=== PATIENT | female | born 1950 | race Caucasian/White ===

== ENCOUNTER 2020-07-27 10:51 | Emergency (ER) | payer MEDICARE, BC ==
--- NOTE | 2020-07-27 11:14 | EDM.PDOC ---
ED HPI GENERAL MEDICAL PROBLEM - General Chief Complaint: Cardiovascular Problem Stated Complaint: EMS ARRIVAL Time Seen by Provider: 07/27/20 10:52 Source of Information: Reports: Patient History Limitations: Reports: No Limitations - History of Present Illness INITIAL COMMENTS - FREE TEXT/NARRATIVE: Presents via EMS reporting syncope. Patient states she was at a local orthop edic clinic getting a ruth's cyst checked out. She started feeling lightheaded, she asked to lay down which she did, brief syncope. Later on in the visit she had to go the bathroom and she passed out in the wheelchair. Then she was feeling better but had to lay down again and so the staff called EMS. However the patient states "this is nothing new for me--I pass out all the time at the doctors. I have passed out in the eye clinic, when I get my blood drawn, when I see the doctor". States she is otherwise healthy, has no chronic medical problems except controlled essential HTN and dyslipidemia and regularly sees her doctor for preventative healthcare once yearly. She states she has not altered her usual habit of drinking 2 glasses of water a day. She has been eating normally and has not been otherwise ill. - Related Data Allergies Allergy/AdvReac Type Severity Reaction Status Date / Time metal Allergy Hives Uncoded 07/27/20 10:56 Home Meds: Home Meds Gemfibrozil 600 mg PO BID 03/19/15 [History] lisinopriL [Lisinopril] 5 mg PO DAILY 07/27/20 [History] Past Medical History Other [employer] History: hysterectomy Endocrine/Metabolic History: Reports: Diabetes, Type II, Other (See Below) Other Endocrine/Metabolic History: Kidney Disease - Infectious Disease History Infectious Disease History: Reports: Chicken Pox, Measles - Past Surgical History GI Surgical History: Reports: Appendectomy, Cholecystectomy Female Surgical History: Reports: Hysterectomy Social & Family History - Family History Family Medical History: Noncontributory - Tobacco Use Tobacco Use Status *Q: Never Tobacco User - Caffeine Use Caffeine Use: Reports: Coffee - Recreational Drug Use Recreational Drug Use: No ED ROS GENERAL - Review of Systems Review Of Systems: Comprehensive ROS is negative, except as noted in HPI. ED EXAM, GENERAL - Physical Exam Exam: See Below Exam Limited By: No Limitations General Appearance: Alert, No Apparent Distress Ears: Normal External Exam Nose: Normal Inspection Throat/Mouth: Normal Inspection Head: Atraumatic, Normocephalic Neck: Normal Inspection Respiratory/Chest: No Respiratory Distress, Lungs Clear, Normal Breath Sounds Cardiovascular: Normal Peripheral Pulses, Regular Rate, Rhythm GI/Abdominal: Soft Back Exam: Normal Inspection Extremities: Normal Inspection Neurological: Alert, Oriented, Normal Cognition Psychiatric: Normal Mood, Flat Affect Skin Exam: Warm, Dry, Intact, Normal Color, No Rash Lymphatic: No Adenopathy #1 Interpretation EKG Date: 07/27/20 Rhythm: NSR [place]: Normal P-Wave: Present QRS: Normal ST-T: Normal QT: Normal Course - Vital Signs Last Recorded V/S: Last Vital Signs Temp Pulse 58 L 07/27/20 10:52 Resp 16 07/27/20 10:52 BP 140/83 07/27/20 10:52 Pulse Ox 97 07/27/20 10:52 - Orders/Labs/Meds Orders: Active Orders 24 hr Category Date Time Status EKG 12 Lead [EKG Documentation Completion] [RC] STAT Care 07/27/20 12:30 Active Labs: Laboratory Tests 07/27/20 07/27/20 Range/Units 11:40 11:40 WBC 4.84 (4.0-11.0) K/uL RBC 4.44 (4.30-5.90) M/uL Hgb 13.8 (12.0-16.0) g/dL Hct 42.1 (36.0-46.0) % MCV 94.8 (80.0-98.0) fL MCH 31.1 (27.0-32.0) pg MCHC 32.8 (31.0-37.0) g/dL RDW Std Deviation 43.6 (28.0-62.0) fl RDW Coeff of Isa 13 (11.0-15.0) % Plt Count 329 (150-400) K/uL MPV 9.70 (7.40-12.00) fL Neut % (Auto) 69.0 (48.0-80.0) % Lymph % (Auto) 21.1 (16.0-40.0) % [place] % (Auto) 8.7 (0.0-15.0) % Eos % (Auto) 0.6 (0.0-7.0) % Baso % (Auto) 0.6 (0.0-1.5) % Neut # (Auto) 3.3 (1.4-5.7) K/uL Lymph # (Auto) 1.0 (0.6-2.4) K/uL [place] # (Auto) 0.4 (0.0-0.8) K/uL Eos # (Auto) 0.0 (0.0-0.7) K/uL Baso # (Auto) 0.0 (0.0-0.1) K/uL Nucleated RBC % 0.0 /100WBC Nucleated RBCs # 0 K/uL Sodium 140 (136-145) mmol/L Potassium 3.9 (3.5-5.1) mmol/L Chloride 103 (98-107) mmol/L Carbon Dioxide 25.1 (21.0-32.0) mmol/L BUN 26 H (7.0-18.0) mg/dL Creatinine 0.8 (0.6-1.0) mg/dL Est Cr Clr Drug Dosing 45.66 mL/min Estimated GFR (MDRD) > 60.0 ml/min Glucose 155 H (74-106) mg/dL Calcium 9.8 (8.5-10.1) mg/dL Total Bilirubin 0.3 (0.2-1.0) mg/dL AST 19 (15-37) IU/L ALT 26 (14-63) IU/L Alkaline Phosphatase 72 (46-116) U/L Troponin I < 0.050 (0.000-0.056) ng/mL Total Protein 7.6 (6.4-8.2) g/dL Albumin 4.3 (3.4-5.0) g/dL Globulin 3.3 (2.6-4.0) g/dL Albumin/Globulin Ratio 1.3 (0.9-1.6) TSH 3rd Generation 1.74 (0.36-3.74) uIU/mL - Re-Assessments/Exams Free Text/Narrative Re-Assessment/Exam: 07/27/20 13:00 Now the patient tells me that she has had some borderline diabetes in the past which is diet controlled. She checked her blood sugar this morning and it was 98 and she did have some juice afterwards. I visited with her family and they concurred that this is a common experience for her when she goes to the doctor "we have been through it many times". Has an appointment with her primary care provider on August 18 Departure - Departure Time of Disposition: 13:01 Disposition: Home, Self-Care 01 Condition: Good Clinical Impression: Syncope Qualifiers: Syncope type: vasovagal syncope Qualified Code(s): R55 - Syncope and collapse Referrals: Bony Prather MD [Primary Care Provider] - Forms: ED Department Discharge Additional Instructions: The following information is given to patients seen in the emergency department who are being discharged to home. This information is to outline your options for follow-up care. We provide all patients seen in our emergency department with a follow-up referral. The need for follow-up, as well as the timing and circumstances, are variable depending upon the specifics of your emergency department visit. If you don't have a primary care physician on staff, we will provide you with a referral. We always advise you to contact your personal physician following an emergency department visit to inform them of the circumstance of the visit and for follow-up with them and/or the need for any referrals to a consulting specialist. The emergency department will also refer you to a specialist when appropriate. This referral assures that you have the opportunity for follow-up care with a specialist. All of these measure are taken in an effort to provide you with optimal care, which includes your follow-up. Under all circumstances we always encourage you to contact your private physician who remains a resource for coordinating your care. When calling for follow-up care, please make the office aware that this follow-up is from your recent emergency room visit. If for any reason you are refused follow-up, please contact the [facility] Emergency Department at and asked to speak to the emergency department charge nurse. 1. Be certain to drink plenty of fluids before any doctors appointment, procedure or blood draw. Check your blood sugar and make sure you have drank some juice or eaten a snack. 2. Follow up with Dr. Prather for your annual exam on August 18 as previously scheduled. We will have to reschedule your orthopedic appointment for your Ruth's cyst. Sepsis Event Note (ED) - Evaluation Sepsis Screening Result: No Definite Risk - Focused Exam Vital Signs: Vital Signs Pulse Resp BP Pulse Ox 07/27/20 10:52 58 L 16 140/83 97
--- NOTE | 2020-07-27 11:16 | PCM.SN.2 ---
- Free Text/Narrative Note: EKG interpretation #1: Obtained at 1105 demonstrates sinus bradycardia with a rate of 56 normal axis and intervals no acute ischemia.
[2020-07-27 12:29] LABS: BLOOD UREA NITROGEN,BUN 26 mg/dL (7.0-18.0); CARBON DIOXIDE,CO2 25.1 mmol/L (21.0-32.0); CHLORIDE,CL 103 mmol/L (98-107); GLUCOSE RANDOM 155 mg/dL (74-106); POTASSIUM,K 3.9 mmol/L (3.5-5.1); SODIUM,NA 140 mmol/L (136-145)
[2020-07-27 13:09] VITALS: BP 127/71; PULSE 67
== END 2020-07-27 13:12 | disposition home or self-care (01) ==
LOC: MW.ED 10:51
DX: R55 Syncope and collapse (principal); I10 Essential (primary) hypertension; E11.9 Type 2 diabetes mellitus without complications; Z91.09 Other allergy status, other than to drugs and biological substances; Z79.899 Other long term (current) drug therapy; Z90.710 Acquired absence of both cervix and uterus; Z90.49 Acquired absence of other specified parts of digestive tract
CPT/HCPCS: 36415; 80053; 84443; 84484; 85025; 93005; 93010; 99283; 99284-25